=== PATIENT | male | born 1935 | race Caucasian/White ===

== ENCOUNTER 2018-12-24 08:46 | Inpatient (IN) | payer OTHER | END 2019-01-02 19:00 | LOC: EDH 08:46 → 2BH 12-25 01:36 → 2DH 12-27 14:28 → EDHIP 10:41 | DX: A41.9 Sepsis, unspecified organism (principal); I46.9 Cardiac arrest, cause unspecified; J69.0 Pneumonitis due to inhalation of food and vomit; J80 Acute respiratory distress syndrome; R57.1 Hypovolemic shock; R65.21 Severe sepsis with septic shock; J96.01 Acute respiratory failure with hypoxia; K72.00 Acute and subacute hepatic failure without coma; D68.59 Other primary thrombophilia; I13.0 Hypertensive heart and chronic kidney disease with heart failure and stage 1 through stage 4 chronic kidney disease, or unspecified chronic kidney disease; N17.9 Acute kidney failure, unspecified; N39.0 Urinary tract infection, site not specified; D64.9 Anemia, unspecified; E11.22 Type 2 diabetes mellitus with diabetic chronic kidney disease ==

== ENCOUNTER 2022-03-08 19:23 | Inpatient (IN) | payer MEDICARE ==
[~2022-03-08] VITALS: Ht 180.3 cm; Wt 86.6 kg
[~2022-03-08 19:23] MED LIST: AMLO-257 PO; APIX5TAB PO; DILT180C47 PO; ESOM40CA54 PO; LATA2.5D14 OP; METO50TA18 PO; NITR0.4T SL; TIOT18CA3 IH
[2022-03-08 19:55] LABS: BASOPHILS % (AUTO) 0.4 % (0.0-5.0); EOSINOPHILS % (AUTO) 1.7 % (0.0-8.0); HEMATOCRIT 41.5 % (42-54); LYMPHOCYTES % (AUTO) 16.7 % (21.0-51.0); MEAN CORPUSCULAR HEMOGLOBIN 30.6 pg (27.0-33.0); MEAN CORPUSCULAR VOLUME 95.4 fL (79-99); MONOCYTES % (AUTO) 10.1 % (3.0-13.0); NEUTROPHILS % (AUTO) 68.9 % (40.0-77.0); PLATELET COUNT (AUTO) 336 K/uL (130-400); RED BLOOD CELL COUNT(AUTO) 4.35 MIL/uL (4.50-6.20); RED CELL DISTRIBUTION WIDTH 14.7 % (11.0-15.5); WHITE BLOOD COUNT (AUTO) 11.5 K/uL (4.8-10.8)
[2022-03-08 20:05] LABS: CREATININE 2.3 mg/dL (0.5-1.5); POTASSIUM 4.9 mmol/L (3.5-5.1)
[2022-03-08 20:12] LABS: ALBUMIN 3.6 g/dL (3.5-5.0); BILIRUBIN,TOTAL 0.4 mg/dL (0.2-1.0); TOTAL PROTEIN, SERUM 8.3 g/dL (6.0-8.3)
[2022-03-08 20:21] LABS: B-TYPE NATRIURETIC PEPTIDE 930 pg/mL (0-100)
[2022-03-08 21:12] LABS: APPEARANCE,URINE CLOUDY (CLEAR); BILIRUBIN,URINE NEGATIVE (NEGATIVE); COLOR,URINE YELLOW (YELLOW); GLUCOSE, URINE (UA) NEGATIVE (NEGATIVE); KETONES,URINE NEGATIVE (NEGATIVE); LEUKOCYTE ESTERASE ,URINE LARGE (NEGATIVE); NITRATE,URINE POSITIVE (NEGATIVE); OCCULT BLOOD,URINE MODERATE (NEGATIVE); PROTEIN,URINE 30 mg/dL (NEGATIVE); UROBILINOGEN,URINE 0.2 mg/dL (0.2-1.0)
[2022-03-08 21:17] LABS: BACTERIA,URINE Moderate /HPF (None Seen); RBC,URINE 26-50 /HPF (0-1); SQUAMOUS EPITHELIAL CELL,UR Rare /HPF (0-2); WBC,URINE 26-50 /HPF (0-1)
[2022-03-08] MEDS ORDERED: FENTANYL CITRATE PF 50 MCG/1 ML 2ML VIAL IVP ONE ×2 (21:30→23:00)
[2022-03-08] MEDS ORDERED: ASPIRIN 325MG EC TAB PO ONE (21:30)
[2022-03-08] MEDS ORDERED: ONDANSETRON 4MG INJ IVP ONE (21:30)
[2022-03-08] MEDS ORDERED: ONDANSETRON 4MG INJ ONE (21:31)
[2022-03-08] MEDS ORDERED: ASPIRIN 325MG TAB ONE (21:31)
[2022-03-08] MEDS ORDERED: FENTANYL CITRATE PF 50 MCG/1 ML 2ML VIAL ONE (21:32)
[2022-03-08] MEDS: ZOSYN 3.375GM+NS 50ML 50 ML IV SCH (22:00)
[2022-03-08] MEDS: 0.9%NACL 1000ML 1,000 ML IV SCH (22:00)
[2022-03-08] MEDS ORDERED: ACETAMINOPHEN 325 MG TAB PO PRN (22:00)
[2022-03-08] MEDS ORDERED: ASPIRIN 81MG CHEW TAB PO ONE (22:00)
[2022-03-08] MEDS ORDERED: 0.9%NACL 50ML 50 ML IV ONE (23:29)
[2022-03-09] VITALS (41 sets, daily range): BP systolic 96–137; BP diastolic 47–76
[2022-03-09] MEDS: FENTANYL CITRATE PF 50 MCG/1 ML 2ML VIAL IVP PRN ×2 (01:58→07:50)
[2022-03-09 05:44] LABS: BASOPHILS % (AUTO) 0.1 % (0.0-5.0); EOSINOPHILS % (AUTO) 0.1 % (0.0-8.0); LYMPHOCYTES % (AUTO) 6.9 % (21.0-51.0); MEAN CORPUSCULAR HEMOGLOBIN 31.1 pg (27.0-33.0); MEAN CORPUSCULAR HGB CONC 32.4 g/dL (32.0-36.0); MEAN CORPUSCULAR VOLUME 95.9 fL (79-99); MONOCYTES % (AUTO) 7.8 % (3.0-13.0); NEUTROPHILS % (AUTO) 84.5 % (40.0-77.0); PLATELET COUNT (AUTO) 263 K/uL (130-400); RED BLOOD CELL COUNT(AUTO) 3.86 MIL/uL (4.50-6.20); RED CELL DISTRIBUTION WIDTH 14.9 % (11.0-15.5); WHITE BLOOD COUNT (AUTO) 13.7 K/uL (4.8-10.8)
[2022-03-09 06:00] LABS: CREATININE 2.4 mg/dL (0.5-1.5); MAGNESIUM 2.5 mg/dL (1.80-2.40); PHOSPHORUS 4.6 mg/dL (2.5-4.9); POTASSIUM 5.2 mmol/L (3.5-5.1)
[2022-03-09] MEDS: FAMOTIDINE 20MG VIAL IV SCH (07:50)
[2022-03-09] MEDS ORDERED: ASPIRIN 81MG CHEW TAB PO SCH (09:00)
[2022-03-09] MEDS: ZOSYN 3.375GM+NS 50ML 50 ML IV SCH ×2 (09:09→20:24)
[2022-03-09] MEDS: HEPARIN 5,000 UNIT VIAL SQ SCH ×2 (09:10→14:00)
[2022-03-09] MEDS: SPIRIVA IH SCH (10:05)
[2022-03-09] MEDS: 0.9%NACL 1000ML 1,000 ML IV SCH (11:20)
[2022-03-09] MEDS: ACETAMINOPHEN WITH CODEINE 1 TAB TAB PO PRN ×2 (12:35→20:23)
[2022-03-09] MEDS ORDERED: 0.9%NACL 1000ML 1,000 ML IV SCH ×2 (13:00→16:00)
[2022-03-09 14:03] LABS: INR 1.09 (0.85-1.15); PROTHROMBIN TIME 11.8 SEC (9.6-11.6)
[2022-03-09] MEDS ORDERED: NITROGLYCERIN 50MG VIAL ONE (14:23)
[2022-03-09] MEDS ORDERED: IOHEXOL-350 50ML VIAL IV ONE (14:23)
[2022-03-09] MEDS ORDERED: MIDAZOLAM HCL 1 MG/ML 2ML VIAL ONE (14:23)
[2022-03-09] MEDS ORDERED: LIDOCAINE HCL 400MG/20ML VIAL ONE (14:23)
[2022-03-09] MEDS ORDERED: IOHEXOL 350 MG/ML 100ML INFUS..BTL IV ONE (14:23)
[2022-03-09] MEDS ORDERED: METOPROLOL TARTRATE 1 MG/ML 5ML VIAL IV ONE (15:06)
[2022-03-09] MEDS: LATANOPROST 2.5 ML DROPS OP SCH (20:24)
[2022-03-10] VITALS (36 sets, daily range): BP systolic 92–143; BP diastolic 39–86
[2022-03-10 04:00] LABS: HEMATOCRIT 37.1 % (42-54); MEAN CORPUSCULAR HEMOGLOBIN 30.8 pg (27.0-33.0); MEAN CORPUSCULAR HGB CONC 31.8 g/dL (32.0-36.0); MEAN CORPUSCULAR VOLUME 96.9 fL (79-99); RED BLOOD CELL COUNT(AUTO) 3.83 MIL/uL (4.50-6.20); RED CELL DISTRIBUTION WIDTH 14.9 % (11.0-15.5); WHITE BLOOD COUNT (AUTO) 12.4 K/uL (4.8-10.8)
[2022-03-10 04:18] LABS: CREATININE 2.1 mg/dL (0.5-1.5); POTASSIUM 4.8 mmol/L (3.5-5.1)
[2022-03-10] MEDS: DILTIAZEM 180MG SR CAP PO SCH (07:48)
[2022-03-10] MEDS: SPIRIVA IH SCH (07:48)
[2022-03-10] MEDS: FAMOTIDINE 20MG VIAL IV SCH (07:48)
[2022-03-10] MEDS: APIXABAN 5 MG TABLET PO SCH ×2 (07:48→21:26)
[2022-03-10] MEDS: PANTOPRAZOLE 40 MG TAB DR PO SCH (07:49)
[2022-03-10] MEDS ORDERED: METOPROLOL TARTRATE 1 MG/ML 5ML VIAL IV PRN (08:30)
[2022-03-10] MEDS: METOPROLOL TARTRATE 50 MG TAB PO SCH ×2 (08:30→21:26)
[2022-03-10] MEDS ORDERED: IPRATROPIUM 0.5 MG/2.5 ML INH IH PRN (09:30)
[2022-03-10 09:39] LABS: ALBUMIN 2.9 g/dL (3.5-5.0); BILIRUBIN,DIRECT 0.1 mg/dL (0.0-0.3); BILIRUBIN,TOTAL 0.3 mg/dL (0.2-1.0); TOTAL PROTEIN, SERUM 6.6 g/dL (6.0-8.3)
[2022-03-10] MEDS: BUDESONIDE 0.5 MG/2 ML INH IH SCH ×2 (09:52→20:36)
[2022-03-10] MEDS: ACETAMINOPHEN 500 MG TABLET PO SCH ×2 (10:09→17:47)
[2022-03-10] MEDS: LIDOCAINE 5% TOPICAL PATCH TP SCH (10:09)
[2022-03-10] MEDS ORDERED: HYDROMORPHONE 0.5 MG SYG (0.5MG/0.5ML) IVP PRN (12:00)
[2022-03-10] MEDS: TRAMADOL HCL 50 MG TABLET PO PRN (14:08)
[2022-03-10] MEDS: LATANOPROST 2.5 ML DROPS OP SCH (21:00)
[2022-03-10] MEDS: ZOSYN 3.375GM+NS 50ML 50 ML IV SCH (21:26)
[2022-03-10] MEDS: DOCUSATE SODIUM 100 MG CAP PO SCH (21:26)
[2022-03-11] VITALS (15 sets, daily range): BP systolic 103–128; BP diastolic 48–72
[2022-03-11] MEDS: ACETAMINOPHEN 500 MG TABLET PO SCH ×3 (01:00→18:01)
[2022-03-11 04:11] LABS: BASOPHILS % (AUTO) 0.4 % (0.0-5.0); EOSINOPHILS % (AUTO) 1.4 % (0.0-8.0); HEMATOCRIT 36.2 % (42-54); LYMPHOCYTES % (AUTO) 6.5 % (21.0-51.0); MEAN CORPUSCULAR HEMOGLOBIN 29.7 pg (27.0-33.0); MEAN CORPUSCULAR HGB CONC 30.7 g/dL (32.0-36.0); MEAN CORPUSCULAR VOLUME 96.8 fL (79-99); MONOCYTES % (AUTO) 7.7 % (3.0-13.0); NEUTROPHILS % (AUTO) 83.4 % (40.0-77.0); PLATELET COUNT (AUTO) 238 K/uL (130-400); RED BLOOD CELL COUNT(AUTO) 3.74 MIL/uL (4.50-6.20); WHITE BLOOD COUNT (AUTO) 14.2 K/uL (4.8-10.8)
[2022-03-11 04:36] LABS: ALBUMIN 2.8 g/dL (3.5-5.0); BILIRUBIN,TOTAL 0.5 mg/dL (0.2-1.0); CREATININE 2.3 mg/dL (0.5-1.5); MAGNESIUM 2.4 mg/dL (1.80-2.40); PHOSPHORUS 3.3 mg/dL (2.5-4.9); POTASSIUM 4.8 mmol/L (3.5-5.1); TOTAL PROTEIN, SERUM 6.8 g/dL (6.0-8.3)
[2022-03-11] MEDS: PANTOPRAZOLE 40 MG TAB DR PO SCH (06:17)
[2022-03-11] MEDS: BUDESONIDE 0.5 MG/2 ML INH IH SCH (06:46)
[2022-03-11] MEDS: LIDOCAINE 5% TOPICAL PATCH TP SCH (08:23)
[2022-03-11] MEDS: POLYETHYLENE GLYCOL 3350 17 GM POWD.PACK PO SCH (08:23)
[2022-03-11] MEDS: DILTIAZEM 180MG SR CAP PO SCH (08:23)
[2022-03-11] MEDS: ZOSYN 3.375GM+NS 50ML 50 ML IV SCH ×2 (08:23→21:32)
[2022-03-11] MEDS: METOPROLOL TARTRATE 50 MG TAB PO SCH ×2 (08:24→21:33)
[2022-03-11] MEDS: APIXABAN 5 MG TABLET PO SCH ×2 (08:24→21:32)
[2022-03-11] MEDS: TRAMADOL HCL 50 MG TABLET PO PRN (08:25)
[2022-03-11] MEDS: DOCUSATE SODIUM 100 MG CAP PO SCH ×2 (08:25→21:33)
[2022-03-11] MEDS: SPIRIVA IH SCH (08:26)
[2022-03-11] MEDS: LATANOPROST 2.5 ML DROPS OP SCH (21:00)
[2022-03-12] MEDS: ACETAMINOPHEN 500 MG TABLET PO SCH ×2 (01:19→08:24)
[2022-03-12 03:51] VITALS: BP 126/67
[2022-03-12 04:29] LABS: CREATININE 2.2 mg/dL (0.5-1.5); POTASSIUM 4.8 mmol/L (3.5-5.1)
[2022-03-12 04:38] LABS: BASOPHILS % (AUTO) 0.4 % (0.0-5.0); EOSINOPHILS % (AUTO) 2.7 % (0.0-8.0); HEMATOCRIT 37.3 % (42-54); LYMPHOCYTES % (AUTO) 8.8 % (21.0-51.0); MEAN CORPUSCULAR HEMOGLOBIN 29.9 pg (27.0-33.0); MEAN CORPUSCULAR HGB CONC 31.1 g/dL (32.0-36.0); MEAN CORPUSCULAR VOLUME 96.1 fL (79-99); MONOCYTES % (AUTO) 7.8 % (3.0-13.0); NEUTROPHILS % (AUTO) 79.7 % (40.0-77.0); PLATELET COUNT (AUTO) 250 K/uL (130-400); RED BLOOD CELL COUNT(AUTO) 3.88 MIL/uL (4.50-6.20); RED CELL DISTRIBUTION WIDTH 15.1 % (11.0-15.5); WHITE BLOOD COUNT (AUTO) 12.4 K/uL (4.8-10.8)
[2022-03-12] MEDS: BUDESONIDE 0.5 MG/2 ML INH IH SCH (06:30)
[2022-03-12] MEDS: DOCUSATE SODIUM 100 MG CAP PO SCH (07:55)
[2022-03-12] MEDS: DILTIAZEM 180MG SR CAP PO SCH (07:55)
[2022-03-12 07:56] VITALS: BP 164/56
[2022-03-12] MEDS: APIXABAN 5 MG TABLET PO SCH (07:57)
[2022-03-12] MEDS: POLYETHYLENE GLYCOL 3350 17 GM POWD.PACK PO SCH (07:58)
[2022-03-12] MEDS: PANTOPRAZOLE 40 MG TAB DR PO SCH (07:59)
[2022-03-12] MEDS: METOPROLOL TARTRATE 50 MG TAB PO SCH (07:59)
[2022-03-12] MEDS: SPIRIVA IH SCH (08:00)
[2022-03-12] MEDS: LIDOCAINE 5% TOPICAL PATCH TP SCH (08:00)
[2022-03-12] MEDS: ZOSYN 3.375GM+NS 50ML 50 ML IV SCH (08:23)
[2022-03-12] MEDS ORDERED: AMOX-426 PO (10:18)
[2022-03-12 12:00] VITALS: BP 131/71
== END 2022-03-12 15:04 | DRG 280 ==
LOC: EDH 19:23 → EDHIP 21:13 → OBSVTOIN 21:35 → 2CH 03-09 03:34 → 2DH 03-11 11:11
PROVIDERS: ADMIT Internal Medicine; ATTEND Internal Medicine
PROC: 4A023N7 Measurement of Cardiac Sampling and Pressure, Left Heart, Percutaneous Approach (ICD-10-PCS; principal; 2022-03-09)
PROC: B2111ZZ Fluoroscopy of Multiple Coronary Arteries using Low Osmolar Contrast (ICD-10-PCS; 2022-03-09)
DX: I13.0 Hypertensive heart and chronic kidney disease with heart failure and stage 1 through stage 4 chronic kidney disease, or unspecified chronic kidney disease (principal); I46.9 Cardiac arrest, cause unspecified; I21.A1 Myocardial infarction type 2; I50.43 Acute on chronic combined systolic (congestive) and diastolic (congestive) heart failure; N39.0 Urinary tract infection, site not specified; N17.9 Acute kidney failure, unspecified; N18.4 Chronic kidney disease, stage 4 (severe); I31.9 Disease of pericardium, unspecified; T83.518A Infection and inflammatory reaction due to other urinary catheter, initial encounter; S22.32XA Fracture of one rib, left side, initial encounter for closed fracture; J96.11 Chronic respiratory failure with hypoxia; I48.19 Other persistent atrial fibrillation; F17.210 Nicotine dependence, cigarettes, uncomplicated; D72.810 Lymphocytopenia; F10.20 Alcohol dependence, uncomplicated; C61 Malignant neoplasm of prostate; D64.9 Anemia, unspecified; R53.81 Other malaise; X58.XXXA Exposure to other specified factors, initial encounter; I25.10 Atherosclerotic heart disease of native coronary artery without angina pectoris; E11.22 Type 2 diabetes mellitus with diabetic chronic kidney disease; J44.9 Chronic obstructive pulmonary disease, unspecified; K21.9 Gastro-esophageal reflux disease without esophagitis; E78.5 Hyperlipidemia, unspecified; Z90.49 Acquired absence of other specified parts of digestive tract; Z79.01 Long term (current) use of anticoagulants; Z79.899 Other long term (current) drug therapy; Y84.6 Urinary catheterization as the cause of abnormal reaction of the patient, or of later complication, without mention of misadventure at the time of the procedure; Y92.89 Other specified places as the place of occurrence of the external cause; Z99.81 Dependence on supplemental oxygen
CPT/HCPCS: 36415; 70450; 71045; 71250; 80048; 80053; 80076; 81001; 82550; 82948; 83605; 83735; 83880; 84100; 84145; 84484; 85025; 85027; 85610; 87040; 87077; 87088; 87186; 93005; 93306; 93458; 94640; 97039; C1760; C1894; G0378; J1170; J1644; J2250; J2405; J2543; J3010; J3490; Q9967